=== PATIENT | female | born 1975 | race Caucasian/White ===

== ENCOUNTER → 2023-11-03 06:27 | Day surgery (SDC) | payer OTHER, SELFPAY | LOC: GI 06:27 | PROVIDERS: ATTENDING PHYSICIAN Internal Medicine Gastroenterology | DX: Z12.11 Encounter for screening for malignant neoplasm of colon (principal); K64.8 Other hemorrhoids | CPT/HCPCS: G0121 ==

== ENCOUNTER → 2024-02-01 12:27 | Outpatient (REF) | payer OTHER, SELFPAY | LOC: RAD 12:27 | PROVIDERS: ATTENDING PHYSICIAN Internal Medicine Rheumatology; FAMILY PHYSICIAN Nurse Practitioner Acute Care | DX: M35.9 Systemic involvement of connective tissue, unspecified (principal) | CPT/HCPCS: 72100; 73523 ==

== ENCOUNTER → 2025-02-06 12:40 | Outpatient (REF) | payer OTHER, SELFPAY | LOC: WDC 12:40 | PROVIDERS: ATTENDING PHYSICIAN Family Medicine | DX: Z12.31 Encounter for screening mammogram for malignant neoplasm of breast (principal) | CPT/HCPCS: 77063; 77067 ==